=== PATIENT | female | born 1995 | race Caucasian/White ===

== ENCOUNTER → 2016-12-06 | Outpatient (CLI) | payer OTHER ==
--- NOTE | 2016-12-07 03:15 | REP ---
Clinical: Pelvic pain with history of endometriosis and left ovarian cystectomy. Technique: Transabdominal pelvic ultrasound followed by transvaginal examination for better evaluation of the endometrium and adnexa with color Doppler evaluation of the ovaries. Findings: Bladder is unremarkable and measures 12.1 x 5.4 x 11.3 cm . Normal anteverted uterus measures 8.0 x 3.3 x 6.2 cm . The endometrial complex measures 8 mm thickness. No discrete uterine or endometrial abnormalities are appreciated. Bilateral ovaries are relatively normal in appearance and vascularity without evidence for torsion. Right ovary measures 3.9 x 2.4 x 1.6 cm ; R I = 0.59 . Left ovary measures 6.1 x 5.3 x 6.3 cm and includes 4.7 x 4.4 x 5.1 cm complex hemorrhagic cyst likely physiologic ; R I = 0.46 . No pelvic fluid or adnexal mass lesion . Impression: 1. 5.1 cm complex hemorrhagic and likely physiologic cyst in the left ovary. II. Otherwise normal pelvic ultrasound including normal uterus and right ovary and no evidence for ovarian torsion bilaterally. Signed by Jonn Cavazos MD 12/07/2016 03:06 A
== END ==
LOC: M RAD 13:53
PROVIDERS: ATTEND Obstetrics & Gynecology
DX: N83.202 Unspecified ovarian cyst, left side (principal); N80.3 Endometriosis of pelvic peritoneum

== ENCOUNTER → 2017-02-02 | Outpatient (CLI) | payer OTHER ==
--- NOTE | 2017-02-02 11:11 | REP ---
Pelvic ultrasound including transabdominal, endovaginal and Doppler ultrasound assessment: Comparison is 12/06/2016. The patient has history of ovarian cysts and endometriosis. The bladder is moderately distended. The uterus is anteverted and normal size measuring 7.2 x 3.2 x 5.0 cm. The endometrium is septated consistent with bicornuate uterus. The endometrium and the right cornu measures 6.2 mm thickness and the left 6.5 mm thickness. These measurements are in the normal range. Right ovary: There is a 3.6 cm right ovarian cyst containing debris, not present on the comparison study. Including this cyst in the right ovary is enlarged measuring 5.3 x 3.9 x 4.6 cm. There is vascular flow in the right ovary with the Doppler resistive index of the intraparenchymal arteries measuring 0.58 . Left ovary: There is a hemorrhagic 4.0 cm left ovarian cyst. On the prior study there was a hemorrhagic 5.1 cm cyst. Including this cyst the left ovary is upper normal size measuring 5.0 x 4.9 x 4.7 cm. There is vascular flow in the left ovary with the Doppler resistive index of the intraparenchymal arteries measuring 0.59. Impression: Bilateral ovarian cysts as described. There is vascular flow in both ovaries. Bicornuate uterus. Signed by Paramjit Velazquez MD 02/02/2017 11:02 A
== END ==
LOC: M RAD 09:47
PROVIDERS: ATTEND Obstetrics & Gynecology
DX: N83.291 Other ovarian cyst, right side (principal); N83.292 Other ovarian cyst, left side

== ENCOUNTER → 2017-06-14 | Outpatient (CLI) | payer OTHER ==
--- NOTE | 2017-06-14 16:39 | REP ---
PELVIC ULTRASOUND: Real-time sonographic evaluation of the pelvis was performed utilizing transabdominal technique. The bladder measures 7.8 x 6.0 x 10.2 cm. The uterus measures 8.1 x 2.6 x 4.8 cm. Endometrial thickness is 4 mm. Right ovary measuring 4.4 x 3.8 x 4.4 cm and contains a cyst 3.2 x 2.2 x 2.8 cm. Prior ultrasound 02/02/2017, demonstrated a complex cyst with a maximum diameter of 3.6 cm. The cysts appears to have mildly decreased in size. There is a complex cyst of the left ovary measuring 4.0 x 3.4 x 3.3 cm. Prior study showed a cyst of similar size. There is blood flow seen in each ovary with duplex Doppler evaluation, with no torsion, RI right ovary 0.63 and left ovary 0.61. There does not appear to be significant free fluid. IMPRESSION: Cyst right ovary appears to have diminished in size when compared to the prior study of 02/02/2017. Complex cyst left ovary is unchanged with a maximum diameter of 4 cm. Please note that the patient declined transvaginal ultrasound. Signed by Paramjit Plascencia MD 06/14/2017 05:11 P
== END ==
LOC: M RAD 15:16
PROVIDERS: ATTEND Obstetrics & Gynecology
DX: N83.201 Unspecified ovarian cyst, right side (principal); N83.202 Unspecified ovarian cyst, left side

== ENCOUNTER → 2017-06-19 | Outpatient (REF) | payer OTHER | LOC: CANPREREF → M SFHCCLAY 16:39 | PROVIDERS: ATTEND Family Medicine | DX: R11.0 Nausea (principal); W57.XXXD Bitten or stung by nonvenomous insect and other nonvenomous arthropods, subsequent encounter; Z53.9 Procedure and treatment not carried out, unspecified reason ==

== ENCOUNTER → 2018-01-07 | Outpatient (REF) | payer OTHER ==
[2018-01-07 22:22] LABS: CHLAMYDIA DNA AMPLIFICATION NEGATIVE (NEGATIVE); GC DNA AMPLIFICATION NEGATIVE (NEGATIVE)
== END ==
LOC: M LAB REF 18:45
DX: Z12.4 Encounter for screening for malignant neoplasm of cervix (principal); Z11.3 Encounter for screening for infections with a predominantly sexual mode of transmission

== ENCOUNTER → 2018-01-17 | Outpatient (REF) | payer OTHER ==
[2018-01-17 11:38] LABS: BASO % 0.5 % (0.0-1.0); EOS # 0.1 10^3/uL (0.0-0.50); EOS % 1.8 % (0.0-3.0); HEMATOCRIT 39.9 % (36.0-47.0); HEMOGLOBIN 12.6 g/dl (12.0-16.0); IMMATURE GRANULOCYTE % 0.7 % (0-3.0); LYMPH # 2.2 10^3/uL (1.5-6.5); LYMPH % 36.7 % (24.0-44.0); MEAN CORPUSCULAR HEMOGLOBIN 28.6 pg (27.0-33.0); MEAN CORPUSCULAR HGB CONC 31.6 g/dl (32.0-36.5); MEAN CORPUSCULAR VOLUME 90.7 fl (80.0-96.0); MONO # 0.4 10^3/uL (0.0-0.8); MONO % 6.4 % (0.0-5.0); NEUTROPHILS # 3.3 10^3/uL (1.8-7.7); NEUTROPHILS % 53.9 % (36.0-66.0); PLATELET COUNT, AUTOMATED 307 10^3/uL (150-450); RED CELL DISTRIBUTION WIDTH 12.6 % (11.5-14.5); RETIC HEMOGLOBIN EQUIVALENT 33.4 pg (24-36); RETICULOCYTE # 69.1 10^9/L (17-77); RETICULOCYTE % 1.6 % (0.5-1.5); WHITE BLOOD COUNT 6.1 10^3/uL (4.0-10.0)
[2018-01-17 12:09] LABS: TOTAL 25(OH) VITAMIN D 22.4 NG/ML (30.0-100.0)
[2018-01-17 12:10] LABS: VITAMIN B12 LEVEL 501 PG/ML (247-911)
[2018-01-17 12:11] LABS: ERYTHROCYTE SEDIMENTATION RATE 5 mm/hr (0-20)
[2018-01-17 12:17] LABS: ALBUMIN 3.7 GM/DL (3.2-5.2); ALBUMIN/GLOBULIN RATIO 1.09 (1.00-1.93); ALKALINE PHOSPHATASE 57 U/L (45-117); ALT/SGPT 17 U/L (12-78); ANION GAP 6 MEQ/L (8-16); AST/SGOT 8 U/L (7-37); BILIRUBIN,TOTAL 0.5 MG/DL (0.2-1.0); BLOOD UREA NITROGEN 8 MG/DL (7-18); CALCIUM LEVEL 8.7 MG/DL (8.5-10.1); CARBON DIOXIDE LEVEL 28 MEQ/L (21-32); CHLORIDE LEVEL 106 MEQ/L (98-107); CREATININE FOR GFR 0.76 MG/DL (0.55-1.30); FERRITIN 22 NG/ML (8-252); FREE THYROXINE INDEX 3.6 % (1.3-4.8); GLOMERULAR FILTRATION RATE > 60.0 (>60); GLUCOSE, FASTING 123 MG/DL (70-100); IRON (FE) 149 UG/DL (50-170); PERCENT SATURATION 37.3 % (13.2-45.0); RHEUMATOID FACTOR QUANT < 10.0 IU/ML (<15.0); SODIUM LEVEL 140 MEQ/L (136-145); T UPTAKE 29 % (30-39); THYROXINE (T4) 12.4 UG/DL (4.5-12.0); TOTAL IRON BINDING CAPACITY 400 UG/DL (250-450); TOTAL PROTEIN 7.1 GM/DL (6.4-8.2)
[2018-01-17 12:36] LABS: FOLATE 18.6 NG/ML (>5.4)
[2018-01-19 15:14] LABS: ANTINUCLEAR ANTIBODIES DIRECT Negative (Negative); Lyme Disease IgG Ab 18 kDa Ban Absent (.); Lyme Disease IgG Ab 23 kDa Ban Absent (.); Lyme Disease IgG Ab 28 kDa Ban Absent (.); Lyme Disease IgG Ab 30 kDa Ban Present (.); Lyme Disease IgG Ab 39 kDa Ban Absent (.); Lyme Disease IgG Ab 41 kDa Ban Absent (.); Lyme Disease IgG Ab 45 kDa Ban Absent (.); Lyme Disease IgG Ab 58 kDa Ban Absent (.); Lyme Disease IgG Ab 66 kDa Ban Absent (.); Lyme Disease IgG Ab 93 kDa Ban Absent (.); Lyme Disease IgG West Blot Int Negative (.); Lyme Disease IgM Ab 23 kDa Ban Present (.); Lyme Disease IgM Ab 39 kDa Ban Absent (.); Lyme Disease IgM Ab 41 kDa Ban Absent (.); Lyme Disease IgM Ab Quantitati 1.17 index (0.00-0.79); Lyme Disease IgM West Blot Int Negative (.)
== END ==
LOC: M SFHCCLAY 08:19
DX: R20.0 Anesthesia of skin (principal); R53.83 Other fatigue